=== PATIENT | female | born 1950 | race Caucasian/White ===

== ENCOUNTER 2016-12-20 08:46 | Emergency (ER) | payer MEDICARE ==
[2016-12-20 09:20] VITALS: BP 156/73
--- NOTE | 2016-12-31 15:19 | UC ---
rox Schulte Timothy, scribed for Martine Mercer MD on 12/20/16 at 1037 . Skin Complaint HPI - HPI Summary HPI Summary: Martine Cordon is a 66 yo female presenting to [facility] with a tick on her back left shoulder, which is engorged and she believes may have been there for a few days. She is not in any current pain. Her MHx includes HTN, asthma, bronchitis, GERD, osteoarthritis. - History of Current Complaint Chief Complaint: UCSkin Time Seen by Provider: 12/20/16 10:32 Stated Complaint: TICK Hx Obtained From: Patient ?: No Onset/Duration: Sudden Onset, Lasting Days, Still Present Skin Exposure Onset/Duration: Days Ago Timing: Constant Onset Severity: Moderate Current Severity: Moderate Pain Intensity: 0 Pain Scale Used: 0-10 Numeric Location: Discrete - back left shoulder Character: Pain, Redness Aggravating: Nothing Alleviating: Nothing Associated Signs & Symptoms: Positive: Negative Related History: Insect Bite/Sting - Allergy/Home Medications Allergies/Adverse Reactions: Allergies Allergy/AdvReac Type Severity Reaction Status Date / Time No Known Drug Allergy Allergy Unknown Verified 12/26/16 09:28 Reaction Details BEE STINGS Allergy Intermediate Swelling Uncoded 12/26/16 09:28 tape, not sure which ones Allergy Intermediate Rash Uncoded 12/26/16 09:28 Review of Systems Constitutional: Negative Skin: Other - tick bite back left shoulder Eyes: Negative ENT: Negative Respiratory: Negative Cardiovascular: Negative Gastrointestinal: Negative Genitourinary: Negative Motor: Negative Neurovascular: Negative Musculoskeletal: Negative Neurological: Negative Psychological: Negative All Other Systems Reviewed And Are Negative: Yes PMH/Surg Hx/FS Hx/Imm Hx Endocrine History Of: Denies: Diabetes, Thyroid Disease Cardiovascular History Of: Reports: Hypertension Denies: Cardiac Disorders, Pacemaker/ICD Respiratory History Of: Reports: Asthma, Bronchitis - LAST EPISODE 2011 Denies: COPD GI/ History Of: Denies: Ulcer - Surgical History Surgical History: Yes Surgery Procedure, Year, and Place: 10/22/[place] [facility] [place] RIGHT W[place]ST [place]LE REMOV[place]. 1987 & 1988 BILATERAL TRIGGER THUMBS RELEASE [facility]. 1989 BILATERAL TUBAL [facility]. [place] [facility] [place]ST [place] ABOVE LEFT BREAST - Family History Known Family History: Positive: Unknown - Pt adopted, Other - brain CA in her kids - Social History Alcohol Use: None Substance Use Type: None Smoking Status (MU): Never Smoked Tobacco Physical Exam Triage Information Reviewed: Yes Appearance: No Pain Distress, Well-Nourished, Ill-Appearing Vital Signs: Initial Vital Signs Temp 98.8 F 12/20/16 09:16 Pulse 77 12/20/16 09:16 Resp 16 12/20/16 09:16 BP 156/73 12/20/16 09:16 Pulse Ox 98 12/20/16 09:16 Vital Signs Reviewed: Yes Eyes: Positive: Conjunctiva Clear. Negative: Discharge ENT: Positive: Hearing grossly normal. Negative: Muffled/hoarse voice Neck: Positive: Supple, Nontender, No Lymphadenopathy Respiratory: Positive: Lungs clear, Normal breath sounds, No respiratory distress Cardiovascular: Positive: RRR, No Murmur, Pulses Normal, Brisk Capillary Refill Musculoskeletal: Positive: Strength Intact, ROM Intact Neurological: Positive: Alert, Muscle Tone Normal Psychological Exam: Normal Psychological: Positive: Age Appropriate Behavior Skin: Positive: Other - engorged tick on left back shoulder, no surrounding redness Course/Dx - Course Course Of Treatment: Martine Cordon is a 66 yo female presenting to [facility] with an engorged tick on her back left shoulder. Her medication list was reviewed this visit. After clinical examination, the tick was removed. She will be discharged home with tick bite and appropriate instructions. Pt declines doxycycline prophylaxis. States she will watch for signs and symptoms of Lyme disease and seek prompt medical attention if any signs or symptoms. - Differential Diagnoses - Skin Complaint Differential Diagnoses: Cellulitis, Tick Born Illness, Other - Lyme disease - Diagnoses Provider Diagnoses: tick bite back left shoulder, tick removal. HTN in poor control Procedures - Procedure Summary Procedure Summary: tick removal with tick twister from the back left shoulder using clean technique. Pt tolerated procedure well. Discharge - Discharge Plan Condition: Stable Disposition: HOME Patient Education Materials: Lyme Disease (ED), Tick Bite (ED) Referrals: Candy Briseno MD [Primary Care Provider] - 2 Days Additional Instructions: Please follow up with your primary care physician regarding your visit to urgent care today. Return to urgent care or the emergency department with any new or recurring symptoms, particularly rashes, fevers, abdominal pain, or wide- spread joint pain. The documentation as recorded by the rox turcios Timothy accurately reflects the service I personally performed and the decisions made by me, Martine Mercer MD.
== END 2016-12-20 10:57 | disposition home or self-care (01) ==
LOC: UCEAST 08:46
DX: S40.262A Insect bite (nonvenomous) of left shoulder, initial encounter (principal); W57.XXXA Bitten or stung by nonvenomous insect and other nonvenomous arthropods, initial encounter; Y93.9 Activity, unspecified; Y92.9 Unspecified place or not applicable; Z91.030 Bee allergy status; Z91.048 Other nonmedicinal substance allergy status; I10 Essential (primary) hypertension; J45.909 Unspecified asthma, uncomplicated; Z90.710 Acquired absence of both cervix and uterus
CPT/HCPCS: 99211; G0463

== ENCOUNTER 2019-02-19 17:22 | Emergency (ER) | payer MEDICARE ==
[2019-02-19 17:52] VITALS: BP 138/72
--- NOTE | 2019-02-19 18:27 | UC ---
Back Pain HPI - HPI Summary HPI Summary: Had a coughing spell while driving this afternoon, causing severe pain across the sacral area. This is similar to discrete episodes which occurred about 4 weeks ago and again about a week ago; these lasted only a few hours and the first relieved with acupuncture treatment. This afternoon, has found it hard to walk, and had to call her daughter for help caring for her grandchildren. No urinary loss or leg weakness. Hx of breast cancer, on anastrozole, recent bone density test shows osteopenia in the lumbar spine. No hx of compression fracture. - History of Current Complaint Chief Complaint: UCBackPain Stated Complaint: BACK PAIN Time Seen by Provider: 02/19/19 18:15 Hx Obtained From: Patient Onset/Duration: Sudden Onset, Lasting Hours Timing: Constant Severity Initially: Severe Severity Currently: Severe Pain Intensity: 10 Back Pain: Is Discrete @ - sacral area, Radiates To - both buttocks. Character: Aching, Spasmodic Aggravating Factor(s): Lifting, Bending, Walking, Cough Alleviating Factor(s): Rest Associated Signs And Symptoms: Positive: Negative - Risk Factors AAA Risk Factors: Negative TAD Risk Factors: Negative Cauda Equina Risk Factors: Negative - Allergies/Home Medications Allergies/Adverse Reactions: Allergies Allergy/AdvReac Type Severity Reaction Status Date / Time bee venom protein (honey bee) Allergy Swelling Verified 02/19/19 17:53 tape, not sure which ones Allergy Intermediate Rash Uncoded 02/19/19 17:52 Home Medications: Home Medications Acetaminophen [Acetaminophen Extra Strength] 500 mg PO ONCE PRN 02/19/19 [ History Confirmed 02/19/19] Anastrozole [Arimidex] 1 mg PO DAILY 02/19/19 [History Confirmed 02/19/19] Ethyl Chloride 02/19/19 [History] Rosuvastatin (NF) [Crestor] 20 mg PO DAILY 02/19/19 [History Confirmed 02/19/19] Turmeric 02/19/19 [History Confirmed 02/19/19] Ubidecarenone [Coq10] 100 mg PO DAILY 02/19/19 [History Confirmed 02/19/19] Vitamin E CAP* 400 unit PO DAILY 02/19/19 [History Confirmed 02/19/19] PMH/Surg Hx/FS Hx/Imm Hx Previously Healthy: No - high weight Cardiovascular History: Hypertension Cancer History: Breast Cancer - Surgical History Surgical History: Yes Surgery Procedure, Year, and Place: 10/22/14 LEFT BREAST MASTECTOMY [facility]. 1951 RIGHT WRIST MOLE REMOVAL. 1987 & 1988 BILATERAL TRIGGER THUMBS RELEASE [facility]. 1989 BILATERAL TUBAL [facility]. HYSTERECTOMY. HYSTERECTOMY [facility]. CYST REMOVED ABOVE LEFT BREAST - Family History Known Family History: Positive: Non-Contributory - Social History Occupation: Retired Lives: With Family Alcohol Use: None Substance Use Type: None Smoking Status (MU): Never Smoked Tobacco Review of Systems All Other Systems Reviewed And Are Negative: Yes Constitutional: Positive: Negative Respiratory: Positive: Other - hx of asthma, no recent use of albuterol. Has chronic cough due to asthma. Cardiovascular: Positive: Negative. Negative: Chest Pain Gastrointestinal: Negative: Abdominal Pain, Nausea Genitourinary: Positive: Other - normal renal function--creatinine 0.7 severl months ago.. Negative: Negative Motor: Positive: Decreased ROM Neurovascular: Positive: Negative Musculoskeletal: Positive: Myalgia Neurological: Positive: Negative Physical Exam Triage Information Reviewed: Yes Appearance: Pain Distress - moderate. Looks older than age, looks chronically unwell. Vital Signs: Initial Vital Signs Temp 99.3 F 02/19/19 17:45 Pulse 88 02/19/19 17:45 Resp 20 02/19/19 17:45 BP 138/72 02/19/19 17:45 Pulse Ox 97 02/19/19 17:45 Eye Exam: Normal Neck: Positive: Supple Respiratory Exam: Other - kyphotic chest wall Respiratory: Positive: Lungs clear, Normal breath sounds Cardiovascular: Positive: RRR, No Murmur Abdomen Description: Positive: Nontender, Soft Musculoskeletal Exam: Other - antalgic gait, requires assistance to rise from chair. Musculoskeletal: Positive: No Edema, ROM Limited @ - lumbar spine with exagerrated lordosis, Other: - DTR's normal, toes downgoing. full rom in hips and knees. Neurological Exam: Normal Neurological: Positive: Alert, Muscle Tone Normal Re-Evaluation - Re-Evaluation First Eval Re-Evaluation Time: 19:20 - some decrease, pain still present Change: Improved - Not significantly better. Back Pain Course/Dx - Course Course Of Treatment: continue muscle relaxants, use acetaminophen as needed for pain, try acupuncture as it was very helpful in the past. - Differential Dx/Diagnosis Differential Diagnosis/HQI/PQRI: Strain, Other - low back strain/muscle spasm Provider Diagnosis: Lumbago Discharge - Sign-Out/Discharge Documenting (check all that apply): Patient Departure All imaging exams completed and their final reports reviewed: No Studies - Discharge Plan Condition: Stable Disposition: HOME Prescriptions: Cyclobenzaprine TAB* [Flexeril 10 MG TAB*] 10 mg PO TID PRN #30 tab PRN Reason: Spasms - Back Patient Education Materials: Acute Low Back Pain (ED) Referrals: Candy Briseno MD [Primary Care Provider] - Additional Instructions: Use muscle relaxants as needed, bearing in mind that this can cause sedation. Continue use of acetaminophen 1000mg three times daily for relief of pain. In case the pain is not improving, ensure that you schedule a visit with Dr. Briseno for next week. - Billing Disposition and Condition Condition: STABLE Disposition: Home
[2019-02-19] MEDS ORDERED: Ketorolac INJ* 60 MG/2 ML VIAL IM ONE (18:43)
[2019-02-19] MEDS ORDERED: Cyclobenzaprine TAB* 10 MG PO ONE (18:43)
== END 2019-02-19 19:38 | disposition home or self-care (01) ==
LOC: UCEAST 17:22
DX: M54.5 Low back pain (principal); I10 Essential (primary) hypertension; Z85.3 Personal history of malignant neoplasm of breast
CPT/HCPCS: 96372; 99212; A9270-GY; G0463; J1885